=== PATIENT | female | born 1990 | race Caucasian/White ===

== ENCOUNTER 2017-01-13 09:32 | Emergency (ER) | payer MEDICAID ==
[~2017-01-13] VITALS: Ht 165.1 cm; Wt 94.3 kg
--- NOTE | 2017-01-13 09:50 | NUR ---
PT CAME IN FOR GENERALIZED WEAKNESS X 1 DAY , DENIES N/V/D. AT FOR EVAL. VSS. SAFETY AND COMFORT MEASURES PROVIDED. WILL MONITOR.
[2017-01-13] MEDS ORDERED: IV NS 0.9% 1,000 ML BAG IV ONE (10:00)
--- NOTE | 2017-01-13 10:00 | NUR ---
IV ACCESS STARTED. BLOOD DRAWN FOR LABS. MEDICATED ORDERED. URINE SAMPLE OBTAINED, SENT.
--- NOTE | 2017-01-13 10:04 | NUR ---
EKG IN PROGRESS
[2017-01-13 10:08] LABS: BASOPHILS # (AUTO) 0.1 /CMM (0.0-0.2); BASOPHILS % (AUTO) 0.7 % (0.0-2.0); EOSINOPHILS # (AUTO) 0.1 /CMM (0.0-0.7); EOSINOPHILS % (AUTO) 1.4 % (0.0-6.0); HEMATOCRIT 42 % (33-45); HEMOGLOBIN 13.6 g/dL (11.5-14.8); LYMPHOCYTES # (AUTO) 2.5 /CMM (0.8-4.8); LYMPHOCYTES % (AUTO) 30.3 % (20.0-44.0); MEAN CORPUSCULAR HEMOGLOBIN 27 PG (26.0-33.0); MEAN CORPUSCULAR HGB CONC 32 g/dl (31.0-36.0); MEAN CORPUSCULAR VOLUME 84 fL (82-100); MONOCYTES # (AUTO) 0.5 /CMM (0.1-1.30); MONOCYTES % (AUTO) 5.8 % (2.0-12.0); NEUTROPHILS # (AUTO) 5.2 /CMM (1.8-8.9); NEUTROPHILS % (AUTO) 61.8 % (43.0-81.0); PLATELET COUNT (AUTO) 385 /CMM (150-450); RDW COEFFICIENT OF VARIATION 13.6 (11.5-15.0); RED BLOOD CELL COUNT(AUTO) 5.05 MIL/uL (4.0-5.2); WHITE BLOOD COUNT (AUTO) 8.4 K/uL (4.3-11.0)
[2017-01-13 10:18] LABS: CALCIUM, SERUM 7.9 mg/dL (8.5-10.1); CREATININE 0.8 mg/dL (0.6-1.3); POTASSIUM 3.6 mmol/L (3.5-5.1)
--- NOTE | 2017-01-13 10:50 | NUR ---
IV removed. Catheter intact and site benign. Pressure and 4x4 applied to site. No bleeding noted.
--- NOTE | 2017-01-13 11:08 | NUR ---
Patient discharged to home in stable condition. Written and verbal after care instructions given. Patient verbalizes understanding of instruction.
[2017-01-13 11:10] VITALS: BP 131/84
== END 2017-01-13 11:11 | disposition home or self-care (01) ==
LOC: ER 09:33
DX: R53.1 Weakness (principal); J45.909 Unspecified asthma, uncomplicated; F17.200 Nicotine dependence, unspecified, uncomplicated; Z90.49 Acquired absence of other specified parts of digestive tract
CPT/HCPCS: 36415; 80048; 82040; 82962; 84443; 84703; 85025; 93005; 96360; 99285; A4606; J7030; Z7610

== ENCOUNTER 2017-03-26 06:32 | Emergency (ER) | payer MEDICAID ==
[~2017-03-26] VITALS: Ht 165.1 cm; Wt 79.4 kg
[2017-03-26 06:38] VITALS: BP 133/76
== END 2017-03-26 08:30 | disposition left against medical advice (07) ==
LOC: ER 06:35
DX: Z53.21 Procedure and treatment not carried out due to patient leaving prior to being seen by health care provider (principal)
CPT/HCPCS: A4606; Z7610

== ENCOUNTER 2017-04-07 07:52 | Emergency (ER) | payer MEDICAID ==
[~2017-04-07] VITALS: Ht 162.6 cm; Wt 79.4 kg
[2017-04-07] MEDS ORDERED: KETOROLAC TROMETHAMINE INJ 30 MG/ML VIAL ONE (08:20)
[2017-04-07] MEDS ORDERED: KETOROLAC TROMETHAMINE INJ 60 MG/2 ML VIAL IM ONE (08:30)
[2017-04-07 08:49] LABS: BASOPHILS % (AUTO) 0.1 % (0.0-2.0); EOSINOPHILS # (AUTO) 0.1 /CMM (0.0-0.7); EOSINOPHILS % (AUTO) 0.9 % (0.0-6.0); HEMATOCRIT 39 % (33-45); HEMOGLOBIN 13.1 g/dL (11.5-14.8); LYMPHOCYTES # (AUTO) 2.2 /CMM (0.8-4.8); LYMPHOCYTES % (AUTO) 24.8 % (20.0-44.0); MEAN CORPUSCULAR HEMOGLOBIN 28 PG (26.0-33.0); MEAN CORPUSCULAR HGB CONC 34 g/dl (31.0-36.0); MEAN CORPUSCULAR VOLUME 84 fL (82-100); MONOCYTES # (AUTO) 0.5 /CMM (0.1-1.30); NEUTROPHILS % (AUTO) 68.2 % (43.0-81.0); PLATELET COUNT (AUTO) 370 /CMM (150-450); RDW COEFFICIENT OF VARIATION 14.2 (11.5-15.0); RED BLOOD CELL COUNT(AUTO) 4.62 MIL/uL (4.0-5.2); WHITE BLOOD COUNT (AUTO) 8.8 K/uL (4.3-11.0)
[2017-04-07 08:52] LABS: APPEARANCE,URINE CLEAR (CLEAR); BILIRUBIN,URINE NEGATIVE (NEGATIVE); BLOOD, URINE NEGATIVE Ery/uL (NEGATIVE); COLOR,URINE YELLOW (YELLOW); KETONES,URINE NEGATIVE (NEGATIVE); LEUKOCYTE ESTERASE ,URINE NEGATIVE (NEGATIVE); NITRITE, URINE NEGATIVE (NEGATIVE); PROTEIN,URINE NEGATIVE (NEGATIVE); UGLUCOSE NEGATIVE (NEGATIVE); UROBILINOGEN,URINE 0.2 EU/dL (0.2)
[2017-04-07 09:01] LABS: CREATININE 0.7 mg/dL (0.6-1.3); POTASSIUM 4.1 mmol/L (3.5-5.1)
[2017-04-07 09:09] LABS: ALBUMIN 3.3 g/dL (3.4-5.0); BILIRUBIN,TOTAL 0.3 mg/dL (0.2-1.0); TOTAL PROTEIN, SERUM 7.3 g/dL (6.4-8.2)
--- NOTE | 2017-04-07 09:38 | NUR ---
Patient discharged to home in stable condition. Written and verbal after care instructions given. Patient verbalizes understanding of instruction.
[2017-04-07 09:40] VITALS: BP 110/80
== END 2017-04-07 09:46 | disposition home or self-care (01) ==
LOC: ER 07:55
DX: J45.909 Unspecified asthma, uncomplicated (principal); F17.200 Nicotine dependence, unspecified, uncomplicated; Z90.49 Acquired absence of other specified parts of digestive tract
CPT/HCPCS: 36415; 80048; 80076; 81001; 83690; 84703; 85025; 87086; 96372; 99284; A4606; J1885; Z7610; 81000-TC

== ENCOUNTER 2018-09-27 13:07 | Emergency (ER) | payer MEDICAID ==
[~2018-09-27] VITALS: Ht 162.6 cm; Wt 99.5 kg
[2018-09-27 14:25] LABS: BILIRUBIN,URINE Negative (NEGATIVE); BLOOD, URINE Negative Ery/uL (NEGATIVE); KETONES,URINE Negative (NEGATIVE); LEUKOCYTE ESTERASE ,URINE Trace (NEGATIVE); NITRITE, URINE Negative (NEGATIVE); PH,URINE 5.5 (5.0-8.0); PROTEIN,URINE Negative (NEGATIVE); UGLUCOSE Negative (NEGATIVE); UROBILINOGEN,URINE 0.2 EU/dL (0.2)
[2018-09-27] MEDS ORDERED: FAMOTIDINE/PF INJ 20 MG/2 ML VIAL IV ONE ×2 (14:25→14:30)
[2018-09-27] MEDS ORDERED: MAG HYDROX/AL HYDROX/SIMETH 30 ML UDC ONE (14:25)
[2018-09-27] MEDS ORDERED: ONDANSETRON HCL/PF 4 MG/2 ML VIAL ONE (14:25)
--- NOTE | 2018-09-27 14:25 | NUR ---
PT PRESENTED TO THE ER WITH A C/O UMBILICAL PAIN. PT STATED THAT SHE HAD A CHOLESYSTECTOMY IN THE PAST AND HAS A HX OF PANCREATITIS. PT STATED THAT IT IS A SHARP PAIN THAT IS INTERMITTENT. PT IS ALSO C/O RT BREAST PAIN THAT IS ON THE SIDE OF THE BREAST. PT STATED THAT THIS IS ALSO INTERMITTENT AND PT STATED THAT IT IS SORE TO PALPATION. PT IS ON THE MONITOR AND CONTINUOUS PULSE OX.
[2018-09-27] MEDS ORDERED: IV NS 0.9% 1,000 ML BAG IV ONE (14:30)
[2018-09-27] MEDS ORDERED: MAG HYDROX/AL HYDROX/SIMETH 30 ML UDC PO ONE (14:30)
[2018-09-27] MEDS ORDERED: ONDANSETRON HCL/PF 4 MG/2 ML VIAL IVP ONE (14:30)
[2018-09-27 14:31] LABS: APPEARANCE,URINE Hazy (CLEAR); COLOR,URINE YELLOW (YELLOW)
[2018-09-27 14:36] LABS: BASOPHILS % (AUTO) 0.4 % (0.0-2.0); HEMATOCRIT 42 % (33-45); HEMOGLOBIN 14.3 g/dL (11.5-14.8); LYMPHOCYTES # (AUTO) 2.4 /CMM (0.8-4.8); LYMPHOCYTES % (AUTO) 23.2 % (20.0-44.0); MEAN CORPUSCULAR HGB CONC 34 g/dl (31.0-36.0); MEAN CORPUSCULAR VOLUME 85 fL (82-100); MONOCYTES # (AUTO) 0.5 /CMM (0.1-1.30); MONOCYTES % (AUTO) 5.1 % (2.0-12.0); NEUTROPHILS # (AUTO) 7.1 /CMM (1.8-8.9); NEUTROPHILS % (AUTO) 70.3 % (43.0-81.0); PLATELET COUNT (AUTO) 372 /CMM (150-450); RED BLOOD CELL COUNT(AUTO) 4.98 MIL/uL (4.0-5.2); WHITE BLOOD COUNT (AUTO) 10.1 K/uL (4.3-11.0)
[2018-09-27 14:39] LABS: BACTERIA,URINE Few /HPF (None Seen); RBC,URINE 0-3 /HPF (0-2); SQUAMOUS EPITHELIAL CELL,UR Moderate /HPF (None Seen); WBC,URINE 20-50 /HPF (0-3)
[2018-09-27 14:40] LABS: MUCUS,URINE Few /LPF (None Seen)
[2018-09-27 14:44] LABS: CALCIUM, SERUM 8.9 mg/dL (8.5-10.1); CREATININE 0.8 mg/dL (0.6-1.3); POTASSIUM 3.9 mmol/L (3.5-5.1)
[2018-09-27 14:49] LABS: ALBUMIN 3.3 g/dL (3.4-5.0); BILIRUBIN,DIRECT 0.1 mg/dL (0.0-0.2); BILIRUBIN,TOTAL 0.4 mg/dL (0.2-1.0); TOTAL PROTEIN, SERUM 7.6 g/dL (6.4-8.2)
--- NOTE | 2018-09-27 15:58 | NUR ---
IV removed. Catheter intact and site benign. Pressure and 4x4 applied to site. No bleeding noted.
--- NOTE | 2018-09-27 16:00 | NUR ---
Patient discharged to home in stable condition. Written and verbal after care instructions given. Patient verbalizes understanding of instruction AND RX. PT AMBULATED OUT WITH A STEADY GAIT.
[2018-09-27 16:02] VITALS: BP 113/59
== END 2018-09-27 16:03 | disposition home or self-care (01) ==
LOC: ER 13:07
DX: R10.13 Epigastric pain (principal); N39.0 Urinary tract infection, site not specified; R11.0 Nausea; R19.7 Diarrhea, unspecified; F17.200 Nicotine dependence, unspecified, uncomplicated; J45.909 Unspecified asthma, uncomplicated; F12.10 Cannabis abuse, uncomplicated; Z87.19 Personal history of other diseases of the digestive system; Z90.49 Acquired absence of other specified parts of digestive tract; Z98.51 Tubal ligation status
CPT/HCPCS: 36415; 80048; 80076; 81001; 83690; 84703; 85025; 96361; 96374; 99283; J3490; J7030; 81000-TC; J2405

== ENCOUNTER 2018-12-31 11:38 | Emergency (ER) | payer MEDICAID ==
[~2018-12-31] VITALS: Ht 162.6 cm; Wt 96.6 kg
[2018-12-31 11:42] VITALS: BP 132/90
[2018-12-31] MEDS ORDERED: SILVER SULFADIAZINE CREAM 25 GM TUBE ONE (12:24)
[2018-12-31] MEDS ORDERED: SILVER SULFADIAZINE CREAM 25 GM TUBE TP ONE (12:30)
== END 2018-12-31 12:53 | disposition home or self-care (01) ==
LOC: ER 11:43
DX: T21.02XA Burn of unspecified degree of abdominal wall, initial encounter (principal); J45.909 Unspecified asthma, uncomplicated; F12.90 Cannabis use, unspecified, uncomplicated; Z90.49 Acquired absence of other specified parts of digestive tract; Z98.890 Other specified postprocedural states; X12.XXXA Contact with other hot fluids, initial encounter; Y93.89 Activity, other specified; Y92.89 Other specified places as the place of occurrence of the external cause; Y99.8 Other external cause status

== ENCOUNTER 2019-01-23 11:44 | Emergency (ER) | payer MEDICAID ==
[~2019-01-23] VITALS: Ht 162.6 cm; Wt 79.4 kg
--- NOTE | 2019-01-23 11:51 | NUR ---
CAME IN FOR ASTHMA ATTACK SINCE THIS MORNING, COUGH x 1 DAY, TO ER BED 10, HOOKED TO MONITOR, CHANGED TO DR SHILPA HOGAN AT BEDSIDE
[2019-01-23] MEDS ORDERED: predniSONE 20 MG TABLET ONE (11:57)
--- NOTE | 2019-01-23 11:59 | NUR ---
[employer] AT BEDSIDE
[2019-01-23] MEDS ORDERED: predniSONE 20 MG TABLET PO ONE (12:00)
[2019-01-23] MEDS ORDERED: ALBUTEROL FS 2.5 MG/3 ML VIAL.NEB NEB ONE (12:00)
[2019-01-23] MEDS ORDERED: ALBUTEROL FS 2.5 MG/3 ML VIAL.NEB ONE (12:01)
--- NOTE | 2019-01-23 12:02 | NUR ---
RT AT BEDSIDE FOR BREATHING TX
--- NOTE | 2019-01-23 13:15 | NUR ---
Patient discharged to home in stable condition. Written and verbal after care instructions given. Patient verbalizes understanding of instruction.
[2019-01-23 13:16] VITALS: BP 109/62
== END 2019-01-23 13:16 | disposition home or self-care (01) ==
LOC: ER 11:44
DX: J45.909 Unspecified asthma, uncomplicated (principal); F12.90 Cannabis use, unspecified, uncomplicated; Z90.49 Acquired absence of other specified parts of digestive tract; Z98.890 Other specified postprocedural states
CPT/HCPCS: 93005; 94640; 99283; J7512

== ENCOUNTER 2020-11-28 13:00 | Emergency (ER) | payer MEDICAID, OTHER ==
[~2020-11-28] VITALS: Ht 162.6 cm; Wt 84.8 kg
[2020-11-28 14:03] VITALS: BP 120/81
--- NOTE | 2020-11-28 14:05 | NUR ---
PATIENT HERE FOR C/O WEAK & DIZZY X 1 WK NO DISTRESS NOTED. RESPIRATIONS EVEN AND UNLABORED.
--- NOTE | 2020-11-28 14:30 | NUR ---
Patient eloped from facility. ER MD notified.
== END 2020-11-28 14:51 | disposition left against medical advice (07) ==
LOC: ER 13:03
DX: Z53.21 Procedure and treatment not carried out due to patient leaving prior to being seen by health care provider (principal); R53.1 Weakness; R42 Dizziness and giddiness; J45.909 Unspecified asthma, uncomplicated; Z90.49 Acquired absence of other specified parts of digestive tract; Z98.890 Other specified postprocedural states
CPT/HCPCS: A6403

== ENCOUNTER 2021-02-19 12:28 | Emergency (ER) | payer OTHER ==
[~2021-02-19] VITALS: Ht 160 cm; Wt 95.3 kg
[2021-02-19 13:03] VITALS: BP 137/80
--- NOTE | 2021-02-19 13:08 | NUR ---
The patient bibs for c/o left ankle pain x 3 weeks s/p fall. Rates pain 8/10. No apparent deformity noted. Will continue to monitor the patient.
--- NOTE | 2021-02-19 14:30 | NUR ---
Patient eloped from facility. ER MD notified.
== END 2021-02-19 14:30 | disposition left against medical advice (07) ==
LOC: ER 12:33
DX: Z53.21 Procedure and treatment not carried out due to patient leaving prior to being seen by health care provider (principal); M25.572 Pain in left ankle and joints of left foot; J45.909 Unspecified asthma, uncomplicated; Z90.49 Acquired absence of other specified parts of digestive tract; Z98.890 Other specified postprocedural states

== ENCOUNTER 2022-08-24 20:47 | Emergency (ER) | payer OTHER ==
[~2022-08-24] VITALS: Ht 160 cm; Wt 83.9 kg
--- NOTE | 2022-08-24 21:50 | NUR ---
BIB FAMILY FOR LOWER ABD PAIN AND DYSURIA X 3 DAYS
--- NOTE | 2022-08-24 22:00 | NUR ---
URINE COLLECTED SENT TO LAB
[2022-08-24 22:46] LABS: BILIRUBIN,URINE NEGATIVE (NEGATIVE); COLOR,URINE YELLOW (YELLOW); LEUKOCYTE ESTERASE ,URINE NEGATIVE (NEGATIVE); NITRITE, URINE NEGATIVE (NEGATIVE); PROTEIN,URINE NEGATIVE (NEGATIVE); UGLUCOSE NEGATIVE (NEGATIVE); UROBILINOGEN,URINE 0.2 EU/dL (0.2)
[2022-08-24] MEDS ORDERED: NITR100C6 PO (23:23)
[2022-08-24] MEDS ORDERED: PHEN-705 PO (23:23)
[2022-08-24] MEDS ORDERED: NITROFURANTOIN/MONOHYDRATE MACROCRYSTALS 100 MG CAPSULE PO ONE (23:30)
[2022-08-24 23:32] VITALS: BP 148/76
--- NOTE | 2022-08-24 23:32 | NUR ---
Patient discharged to home in stable condition. RX Written and verbal after care instructions given. Patient verbalizes understanding of instruction.
== END 2022-08-24 23:33 | disposition home or self-care (01) ==
LOC: ER 20:50
DX: N39.0 Urinary tract infection, site not specified (principal); J45.909 Unspecified asthma, uncomplicated; Z90.49 Acquired absence of other specified parts of digestive tract
CPT/HCPCS: 84703-TC; 87086-TC